=== PATIENT | female | born 1980 | race Caucasian/White ===

== ENCOUNTER 2021-03-08 17:59 | Inpatient (IN) ==
[~2021-03-08 17:59] MED LIST: Methylergonovine 0.2 MG/ML AMPUL IM ONE
[2021-03-08] MEDS ORDERED: Ringers Solution, Lactated 1,000 ML ONE (18:33)
[2021-03-08] MEDS ORDERED: EPHEDrine 50 MG/ML VIAL IVP PRN (18:34)
[2021-03-08] MEDS ORDERED: *HR* FentaNYL (PF) 100 MCG/2 ML VIAL EP ONE (18:34)
[2021-03-08] MEDS ORDERED: Naloxone 0.4 MG/ML INJ IVP PRN ×2 (18:34→18:54)
[2021-03-08] MEDS ORDERED: Ondansetron 4 MG/2 ML VIAL IVP PRN (18:34)
[2021-03-08] MEDS ORDERED: Ropivacaine/PF 0.2% 20 ML VIAL EP ONE (18:34)
[2021-03-08] MEDS ORDERED: *HR* Nalbuphine 10 MG/ML AMPUL ONE (18:40)
[2021-03-08] MEDS ORDERED: Epidural Premix (fent/bupiv) 110 ML EP SCH (18:45)
[2021-03-08] MEDS ORDERED: Lidocaine 1% 20 ML MDV ONE (18:51)
[2021-03-08] MEDS ORDERED: Ketamine *HR* 500 MG/10 ML MDV ONE (19:19)
[2021-03-08] MEDS ORDERED: *HR* Midazolam HCl 2 MG/2 ML VIAL ONE (19:46)
[2021-03-08] MEDS ORDERED: Ondansetron 4 MG/2 ML VIAL ONE (19:46)
[2021-03-08] MEDS ORDERED: *HR* FentaNYL (PF) 100 MCG/2 ML VIAL ONE (19:47)
[2021-03-08] MEDS ORDERED: *HR* Propofol 200 MG/20 ML VIAL IVP ONE (19:47)
[2021-03-08] MEDS ORDERED: EPHEDrine 50 MG/ML VIAL ONE (20:26)
[2021-03-08] MEDS ORDERED: Oxytocin 20 units/ LR 1000 mL 20 UNIT/1,000 ML BAG IVC SCH (21:23)
[2021-03-08] MEDS ORDERED: Rho Immune Globulin 1,500 UNIT SYRINGE IM PRN (21:23)
[2021-03-08] MEDS ORDERED: *HR* HYDROcodone/Acet 5/325 mg TABLET PO PRN (21:23)
[2021-03-08] MEDS ORDERED: Measles/Mumps/Rubella Vacc 0.5 ML VIAL SQ PRN (21:23)
[2021-03-08] MEDS: Acetaminophen 325 MG TABLET PO PRN (21:39)
[2021-03-09] MEDS: metroNIDAZOLE 500 MG TABLET PO SCH ×3 (00:42→17:15)
[2021-03-09] MEDS: cephALEXin 500 MG CAPSULE PO SCH ×3 (00:42→17:15)
[2021-03-09 06:07] LABS: Basophils % 0.2 %; Eosinophils % 0.1 %; Hematocrit 34.4 % (35.3-44.9); Hemoglobin 11.1 g/dL (11.5-15.4); Immature Granulocytes % 0.5 % (0-4); Lymphocytes # 1.2 K/mcL (0.6-4.6); Lymphocytes % 7.2 %; Mean Corpuscular HGB Conc 32.3 g/dL (31.6-35.5); Mean Corpuscular Hemoglobin 29.8 pg (28.0-33.3); Mean Corpuscular Volume 92.2 fL (83.0-100.0); Mean Platelet Volume 11.7 fL (9.4-12.4); Monocytes # 0.6 K/mcL (0.0-1.3); Monocytes % 3.6 %; Neutrophils # 15.2 K/mcL (1.6-8.9); Platelet Count 142 K/mcL (140-400); Red Blood Count 3.73 M/mcL (3.82-4.97); Red Cell Distribution Width 13.9 % (11.5-14.5); Segmented Neutrophils % 88.4 %; White Blood Count 17.2 K/mcL (4.3-11.1)
[2021-03-09] MEDS ORDERED: Prenatal Vit/FA 1 EACH TABLET PO SCH (09:00)
[2021-03-09] MEDS ORDERED: MULTIVITAMIN PO SCH (09:00)
[2021-03-09] MEDS: Acetaminophen 325 MG TABLET PO PRN (11:35)
[2021-03-09 15:37] VITALS: BP 107/68
== END 2021-03-09 20:08 | disposition home or self-care (01) | DRG 807 ==
LOC: 1NENULAB 17:59 → 1NENUOBS 23:40
PROVIDERS: ADMIT Student in an Organized Health Care Education/Training Program; ATTEND Student in an Organized Health Care Education/Training Program